=== PATIENT | female | born 1960 | race Caucasian/White ===

== ENCOUNTER 2023-06-01 12:39 | Emergency (ER) | payer MEDICAID ==
[~2023-06-01] VITALS: Ht 198.1 cm; Wt 114.5 kg
[2023-06-01 12:55] VITALS: O2SAT 99
[2023-06-01 14:55] LABS: BASOPHILS % 0.6 % (0.0-2.0); EOSINOPHILS % 2.1 % (0.0-5.0); HEMATOCRIT. 39.1 % (36.0-48.0); HEMOGLOBIN. 13.3 g/dL (12.0-16.0); MEAN CORPUSCULAR HEMOGLOBIN 30.9 pg (28.0-32.0); MEAN CORPUSCULAR VOLUME 90.9 fL (81.0-99.0); MEAN PLATELET VOLUME 9.2 fl (7.4-10.4); MONOCYTES % 7.1 % (2.0-8.0); NEUTROPHILS % 67.2 % (40.0-76.0); PLATELET 205 x1000/uL (130-400); RED CELL DISTRIBUTION WIDTH 13.4 % (11.6-14.6); WHITE BLOOD COUNT 6.7 x1000/uL (4.5-11.0)
[2023-06-01 15:01] LABS: CHLORIDE 107 mEq/L (98-107); INDEX HEMOLYSI 1 (1-3); INDEX ICTERIC 1 (1-4); INDEX LIPEMIC 1 (1-3); SODIUM 139 mEq/L (136-145)
[2023-06-01 15:12] LABS: ALANINE AMINOTRANSFERASE 23 IU/L (13-61); ALBUMIN 3.9 g/dL (3.4-5.0); ASPARTATE AMINOTRANSFERASE 13 IU/L (15-37); BILIRUBIN TOTAL 0.4 mg/dL (0.1-1.0); CALCIUM 8.6 mg/dL (8.5-10.1); CARBON DIOXIDE 27 mEq/L (21-32); CREATININE 0.9 mg/dL (0.6-1.3); GLUCOSE 99 mg/dL (70-105); PROTEIN TOTAL 7.3 g/dL (6.0-8.3); UREA NITROGEN BLOOD 16 mg/dL (7-21)
[2023-06-01 16:50] VITALS: BP 135/75; PULSE 87; RESP 18; TEMP 98
== END 2023-06-01 16:51 | disposition home or self-care (01) ==
LOC: ER 12:39
DX: G47.9 Sleep disorder, unspecified (principal); Z98.890 Other specified postprocedural states
CPT/HCPCS: 36415; 80053; 85025; 99283